=== PATIENT | male | born 1985 ===

== ENCOUNTER 2025-02-17 21:46 | Observation (INO) | payer OTHER ==
[~2025-02-17] VITALS: Ht 170.2 cm; Wt 75.7 kg
[2025-02-17 23:30] VITALS: BP 112/77
[2025-02-18] MEDS ORDERED: FentaNYL Citrate 50 MCG/ML 2 ML Injection IV PRN (01:45)
[2025-02-18] MEDS ORDERED: NS 1,000 ML IV SCH (01:45)
[2025-02-18] MEDS ORDERED: Ondansetron HCl 2 MG / ML 2ML Vial IV PRN (01:45)
[2025-02-18] MEDS ORDERED: LORazepam 2 MG/ML 1ML Injection IV ONE (02:00)
[2025-02-18] MEDS ORDERED: Thiamine HCl 100 MG in NS 50 ML IV SCH (02:07)
[2025-02-18] MEDS ORDERED: Mag Hydrox/Al Hydrox/Simeth 18 ML,Lidocaine 2% Viscous Soln 9 ML,Atropine/Scopalam/Hyos... PO PRN (02:10)
[2025-02-18 02:19] LABS: BASOPHILS ABSOLUTE AUTO 0.07 K/mm3 (0.00-0.23); BASOPHILS PERCENT AUTO 1 % (0-2); EOSINOPHILS ABSOLUTE AUTO 0.21 K/mm3 (0.00-0.68); EOSINOPHILS PERCENT AUTO 4 % (0-6); Hematocrit 44.4 % (37.0-53.0); Hemoglobin 16.1 g/dL (13.5-17.5); IMMATURE GRAN ABSOLUTE AUTO 0.07 K/mm3 (0.00-0.10); IMMATURE GRAN PERCENT AUTO 1 % (0-1); LYMPHOCYTES ABSOLUTE AUTO 1.65 K/mm3 (0.84-5.20); LYMPHOCYTES PERCENT AUTO 30 % (21-46); MONOCYTES PERCENT AUTO 15 % (4-13); Mean Corpuscular HGB 31.3 pg (26.0-34.0); Mean Corpuscular HGB Conc 36.3 g/dL (31.5-36.5); Mean Corpuscular Volume 86 fL (80-100); Mean Platelet Volume 8.6 fL (9.1-12.4); NEUTROPHILS ABSOLUTE AUTO 2.65 K/mm3 (1.96-9.15); NEUTROPHILS PERCENT AUTO 49 % (41-73); Platelet Count 295 K/mm3 (150-400); RDW Coefficient Variation 12.6 % (11.7-14.2); RDW Standard Deviation 39.8 fL (35.1-46.3); Red Blood Cell Count 5.14 M/mm3 (4.30-5.90); White Blood Cell Count 5.45 K/mm3 (4.00-11.30)
[2025-02-18] MEDS ORDERED: ChlordiazePOXIDE 25 MG Cap PO PRN (02:35)
[2025-02-18 02:45] VITALS: BP 128/82
[2025-02-18 03:44] LABS: Magnesium, Blood 1.9 mg/dL (1.6-2.4)
[2025-02-18 03:45] LABS: Alanine Aminotransfer (ALT/SGP 114 U/L (12-78); Albumin, Blood 4.1 g/dL (3.4-5.0); Albumin/Globulin Ratio 1.2 (0.8-1.8); Anion Gap 9 mmol/L (3-11); Aspartate Aminotrans (AST/SGOT 36 U/L (12-37); Bilirubin, Total 0.3 mg/dL (0.1-1.0); Blood Urea Nitrogen 9 mg/dL (8-24); Bun/Creatinine Ratio 10.2 (12.0-20.0); CHOL/HDL RATIO 4.6; CO2, Blood 27 mmol/L (21-32); Calcium, Blood 9.3 mg/dL (8.5-10.1); Chloride, Blood 107 mmol/L (98-108); Cholesterol 233 mg/dL (50-200); Creatinine, Blood 0.88 mg/dL (0.60-1.20); Globulin, Blood 3.5 g/dL (2.2-4.0); Glomerular Filtration Rate 112 (60-); Glucose, Blood 86 mg/dL (70-99); HDL Cholesterol 51 mg/dL (>39); LDL/HDL RATIO 2.8; Low Density Lipoprotein Chol 145 mg/dL (0-110); Potassium, Blood 3.9 mmol/L (3.5-5.5); Sodium, Blood 139 mmol/L (136-145); Total Protein, Blood 7.6 g/dL (6.4-8.2); Triglycerides 184 mg/dL (30-140); Very Low Density Lipoprot Chol 36 mg/dL (6-28)
[2025-02-18 03:56] LABS: Alk Phos 74 U/L (50-136)
[2025-02-18 07:52] VITALS: BP 111/65
[2025-02-18 08:05] LABS: Source, Urine Clean Catch
[2025-02-18 08:10] LABS: Appearance, Urine Clear (Clear); Bilirubin, Urine Neg (Neg); Blood, Urine Neg (Neg); Color, Urine Yellow (P-Yellow); Glucose Qualitative, Urine Neg (Neg); Ketones, Urine Neg (Neg); Leukocyte Esterase, Urine Neg (Neg); Nitrite, Urine Neg (Neg); Protein, Urine 1+ (Neg); Specific Gravity, Urine 1.025 (1.003-1.022); Urobilinogen, Urine NORM (Normal)
[2025-02-18] MEDS ORDERED: Enoxaparin 40 MG/0.4 ML SYR SC SCH (09:00)
[2025-02-18 11:45] VITALS: BP 127/90
--- NOTE | 2025-02-18 11:55 | NUR ---
NOTIFIED BY ROPE MACHINE SETTER OF PEAKED T WAVES, THIS IS A NOTICABLE CHANGE FROM MORNING ASSESMENT. DR. EBTH NOTIFIED AND PLACED ORDER FOR STAT POTASSIUM REDRAW.
--- NOTE | 2025-02-18 12:02 | NUR ---
PT ASSESSED. NO NEW SYMPTOMS. REPORTS ANXIETY RELATED TO CURRENT SITUATION. DENIES CHEST PAIN OR PRESSURE. DISCUSSED CARE PLAN WITH PT. FAMILY AT BEDSIDE
[2025-02-18] MEDS ORDERED: BUSP5 PO (12:57)
[2025-02-18] MEDS ORDERED: FAMO20 PO (12:58)
[2025-02-18] MEDS ORDERED: ONDA4ODT MM (12:58)
--- NOTE | 2025-02-18 15:43 | NUR ---
late entry PT DISCHARGED HOME. DISCHARGE INSTRUCTIONS DISCUSSED WITH PT. NO QUESTIONS OR CONCERNS AT TIME OF DISCHARGE/ PT TO FIND PCP WITHIN 2 WEEKS TIME. NEW MEDS FAXED TO [facility]
== END 2025-02-18 13:25 | disposition home or self-care (01) ==
LOC: MEDS 21:46
PROVIDERS: ADMIT Internal Medicine
DX: R79.89 Other specified abnormal findings of blood chemistry (principal); R07.9 Chest pain, unspecified; F41.9 Anxiety disorder, unspecified; F10.20 Alcohol dependence, uncomplicated; F17.210 Nicotine dependence, cigarettes, uncomplicated
CPT/HCPCS: 36415; 80053; 80061; 83690; 83735; 83880; 84132; 84484; 85025; 93306; J1650; J2060; J3411; J7030